=== PATIENT | female | born 1935 | race Caucasian/White ===

== ENCOUNTER → 2017-05-04 | Outpatient (CLI) | payer OTHER | END | disposition home or self-care (01) | LOC: ROC 07:58 | PROVIDERS: ATTEND Radiology Radiation Oncology | DX: Z08 Encounter for follow-up examination after completed treatment for malignant neoplasm (principal); D33.3 Benign neoplasm of cranial nerves; Z86.73 Personal history of transient ischemic attack (TIA), and cerebral infarction without residual deficits | CPT/HCPCS: 99213; G0463 ==

== ENCOUNTER 2021-02-07 04:21 | Inpatient (IN) | payer OTHER ==
[~2021-02-07] VITALS: Ht 167.6 cm; Wt 60.5 kg
--- NOTE | 2021-02-07 04:39 | NUR ---
PT BIB [facility] FOR WEAKNESS, AND ALTERED STATUS, PER THE PTS DAUGHTER. PT FOUND SLUMPED OVER IN THE BED, AFTER HAVING AN ACCIDENT AND STOOLING IN BED, AND WHILE THE DAUGHTER WAS REMOVING THE SHEETS, THE PT SLUMPED AND GOT WEAK. PT HAS HISTORY OF STROKE, AND CANCER. PT HAS LEFT SIDE DROOPING BASELINE, AND PA TO BEDSIDE TO EVAL PT, AND ORDERS RECEIVED. PT HAS A 20G PIV TO THE LEFT FOREARM. PIV FLUSHED EASILY, AND TAPED SECURELY.
--- NOTE | 2021-02-07 05:05 | NUR ---
PTS DAUGHTER IS AT BEDSIDE NOW AND DR GORDON TO ROOM TO EVAL PT.
--- NOTE | 2021-02-07 05:19 | NUR ---
PT CAN HAVE WATER NOW, AND PTS DAUGHTER PROVIDED SOME WATER. PT IN GOOD SPIRITS AND TALKING WITH RN AND FLIRTING, PTS DAUGHTER SAYS SHE'S INCORRIGABLE. PT PROVIDED WARM BLANKETS AND PT EXPRESSED COMFORT FOR IT.
[2021-02-07 05:23] LABS: BASOPHILS % (AUTO) 0 % (0-1); EOSINOPHILS % (AUTO) 1 % (1-7); LYMPHOCYTES % (AUTO) 8 % (22-44); MEAN CORPUSCULAR HEMOGLOBIN 32.2 pg (27.0-34.8); MEAN CORPUSCULAR HGB CONC 33.6 g/dL (32.4-35.8); MEAN PLATELET VOLUME 8.1 fL (7.4-10.4); MONOCYTES % (AUTO) 7 % (2-9); NEUTROPHILS % (AUTO) 84 % (42-75); PLATELET COUNT 314 x10^3/uL (130-400); RED BLOOD COUNT 4.99 x10^6/uL (3.82-5.3); RED CELL DISTRIBUTION WIDTH 15.3 % (9.6-15.2)
[2021-02-07] MEDS ORDERED: SODIUM CHLORIDE 0.9% 1,000ML IVBOLUS ONE (05:30)
--- NOTE | 2021-02-07 05:30 | NUR ---
IVMF STARTED, NS 1000ML PLACED ON PIV. RN TO BEDSIDE TO CONDUCT IN AND OUT CATH FOR URINE SAMPLE. PT AWARE AND AGREES. PTS DAUGHTER ALSO AGREES.
[2021-02-07 05:32] LABS: INTERNATIONAL NORMALIZED RATIO 1.03 (0.93-1.1)
[2021-02-07 05:33] LABS: ALANINE AMINOTRANSFERASE 19 U/L (12-78); ALBUMIN 3.3 g/dL (3.4-5.0); ANION GAP 5 mmol/L (5-15); CALCIUM 9.1 mg/dL (8.5-10.1); CHLORIDE 110 mmol/L (98-107); CREATININE 1.01 mg/dL (0.55-1.02)
[2021-02-07 05:37] LABS: ALKALINE PHOSPHATASE 42 U/L (45-117); BILIRUBIN,TOTAL 0.6 mg/dL (0.2-1.0); TOTAL PROTEIN 7.5 g/dL (6.4-8.2); TROPONIN I < 0.015 ng/mL (0.000-0.045)
[2021-02-07 05:56] LABS: MICROSCOPIC INDICATED
--- NOTE | 2021-02-07 05:58 | NUR ---
PT TAKEN TO CT SCAN, AND DID WELL. PT BACK TO ROOM, AND CONNECTED TO MONITOR.
[2021-02-07] MEDS ORDERED: OMNIPAQUE 350 MG/ML, 100ML BOTTLE ONE (06:09)
--- NOTE | 2021-02-07 06:52 | NUR ---
REPORT TO HUSEYIN NUR.
--- NOTE | 2021-02-07 06:59 | NUR ---
REPORT FROM SHEKHAR, ASSUME CARE OF PT AT THIS TIME.
[2021-02-07] MEDS ORDERED: DIAZEPAM 5 MG/ML, 10ML VIAL IVPush ONE (07:00)
[2021-02-07] MEDS ORDERED: DEXAMETHASONE 4 MG/ML, 1ML IVPush ONE (07:00)
[2021-02-07] MEDS ORDERED: DIAZEPAM 5 MG/ML, 2ML ONE (07:12)
[2021-02-07] MEDS ORDERED: DEXAMETHASONE 4 MG/ML, 1ML ONE (07:12)
--- NOTE | 2021-02-07 07:23 | NUR ---
PT MEDICATED PER ERP ORDER. OXYGEN PLACED AT 2LITERS VIA NC FOR RA SAT 91% PRIOR TO VALIUM. PT TO MRI.
--- NOTE | 2021-02-07 07:40 | NUR ---
PT MEDICATED WITH 2ND DOSE OF VALIUM PER VO ORDER DR HERNANDEZ FOR CLAUSTROPHOBIA IN MRI.
--- NOTE | 2021-02-07 08:31 | NUR ---
PT BACK FROM MRI, UNABLE TO DO PROCEDURE WITHOUT FULL SEDATION. ERP AND TOWER CONTROL OPERATOR NOTIFIED. CONFERRING WITH ELECTRICAL AND INSTRUMENT TECHNICIAN REGARDING TIME IR RN CAN ASSIST WITH PROCEDURAL SEDATION.
--- NOTE | 2021-02-07 08:41 | NUR ---
IR IN WITH OTHER PROCEDURE, CAN ASSIST WITH MRI SEDATION AFTERWARDS. ERP AND SUPERVISOR WET POUR INFORMED. PER DR HERNANDEZ, MAURA TO WAIT FOR IR RN AVAILABILITY TO DO MRI.
--- NOTE | 2021-02-07 09:45 | NUR ---
[facility] IN TO SEE PT. MED REC COMPLETED. PT AWAKE, NEEDING BR. PUREWICK PLACED WITH GOOD URINE OUPUT.
[2021-02-07] MEDS ORDERED: GABA-826 PO (09:47)
[2021-02-07] MEDS ORDERED: ASPI1TAB31 PO (09:47)
[2021-02-07] MEDS ORDERED: CLON0.5T20 PO (09:47)
[2021-02-07] MEDS ORDERED: FOLI1TAB5 PO (09:47)
[2021-02-07] MEDS ORDERED: FOLI1TAB32 PO (09:47)
[2021-02-07] MEDS ORDERED: VIT D3 PO (09:47)
[2021-02-07] MEDS ORDERED: ESOM20CA PO (09:47)
[2021-02-07] MEDS ORDERED: METH2.5T PO ×2 (09:47)
[2021-02-07] MEDS ORDERED: TELM40TA PO (09:47)
[2021-02-07] MEDS ORDERED: ATOR10TA9 PO (09:47)
[2021-02-07] MEDS ORDERED: ACID16CA PO (09:47)
--- NOTE | 2021-02-07 10:08 | NUR ---
PT HAS NURSING HOME [employer] INSURANCE. [facility] CONTACTED, SPOKE WITH MARICARMEN. PATRICK WORKING TO TRANSFER PT.
--- NOTE | 2021-02-07 10:19 | NUR ---
PT TO MRI WITH IR RN.
[2021-02-07] MEDS ORDERED: FENTANYL PF 100 MCG/2ML ONE (10:27)
[2021-02-07] MEDS ORDERED: MIDAZOLAM 1 MG/ML, 5ML ONE (10:46)
[2021-02-07] MEDS ORDERED: SODIUM CHLORIDE 0.9% 1,000 ML IV SCH ×2 (11:00→15:00)
[2021-02-07] MEDS ORDERED: ENOXAPARIN 40 MG/0.4 ML SQ SCH (11:00)
[2021-02-07] MEDS ORDERED: ACETAMINOPHEN 325 MG TABLET PO PRN (11:00)
[2021-02-07] MEDS ORDERED: LACTATED RINGERS 1,000 ML IV SCH (11:00)
[2021-02-07] MEDS ORDERED: ONDANSETRON ODT 4 MG PO PRN (11:00)
--- NOTE | 2021-02-07 11:16 | NUR ---
PER [facility], PT HAS BEEN ACCEPTED BY DR. SHUKLA. NO BED CURRENTLY AVAILABLE. HOLD IN ED. ED EGG CRATER, BANDAR, AWARE. DR. HERNANDEZ AWARE.
--- NOTE | 2021-02-07 11:40 | NUR ---
PT BACK FROM MRI, MRI UNSUCCESSFUL. MIRI NUR ATTEMPTING TO SET UP ANESTHESIA TODAY. COORDINATION REGARDING DISPOSTION BEING DONE BY ERP, THROUGHPUT, AND NEUROSURGEON. PT AND FAMILY UPDATED ON POC. ALL MONITORING BACK IN PLACE. PT ON 3LITERS OXYGEN VIA NC WITH PULSE OX READING 95%.
--- NOTE | 2021-02-07 11:41 | NUR ---
SPOKE WITH DR. RIZO REGARDING TRANSFER SITUATION. MD TO RE-EVALUATE WITH PT AND FAMILY TO DETERMINE WHERE PT IS TO BE ADMITTED.
[2021-02-07] MEDS ORDERED: ENOXAPARIN 40 MG/0.4 ML ONE (12:02)
[2021-02-07 12:09] VITALS: BP 135/73
--- NOTE | 2021-02-07 12:10 | NUR ---
IVF INFUSING PER EMAR. MED REQUEST TO PHARMACY FOR KEPPRA. AWAITING MRI W/GENERAL ANESTHESIA SCHEDULED FOR [id number]. DTR AT BS, CALL LIGHT WITHIN REACH. PT AWAKE, TALKING, VERBALIZES UNDERSTANDING OF POC.
[2021-02-07] MEDS ORDERED: morphine SULFATE 10 MG/ML, 1ML IVPush PRN ×2 (13:00→15:00)
[2021-02-07] MEDS ORDERED: hydrALAzine 20 MG/ML, 1ML IV PRN ×2 (13:00→15:00)
[2021-02-07] MEDS ORDERED: LABETALOL 5MG/ML, 20ML IV PRN ×2 (13:00→15:00)
--- NOTE | 2021-02-07 13:27 | NUR ---
PT SLEEPING INTERMITTENTLY, DAUGHTER AT BS. CALL LIGHT WITHIN REACH.
[2021-02-07] MEDS ORDERED: HYDROcodone/APAP 7.5-325MG/15ML UDC PO PRN (13:30)
[2021-02-07] MEDS ORDERED: PROMETHAZINE 25 MG/ML, 1ML IVPush PRN ×2 (13:30→15:30)
--- NOTE | 2021-02-07 13:52 | NUR ---
REPORT TO WALDEMAR NUR, TRANSFER OF CARE AT THIS TIME.
[2021-02-07] MEDS ORDERED: GADOTERATE 7.5 MMOL/15ML SYR ONE (14:00)
--- NOTE | 2021-02-07 14:01 | NUR ---
Report from BOOM Tracey. This nurse called pharmacy to request the keppra, pharmacy said they will tube it. Pt not in room, in MRI.
--- NOTE | 2021-02-07 14:27 | NUR ---
PT ACCEPTED TO [facility]. Addendum: 02/07/21 at 1427 by [facility] ARRANGED THROUGH [facility] [id number]
[2021-02-07] MEDS ORDERED: LEVETIRACETAM 500 MG in SODIUM CHLORIDE 0.9% 100 ML IV SCH (14:30)
[2021-02-07] MEDS ORDERED: LEVETIRACETAM 100 MG/ML, 5ML IV SCH (14:30)
[2021-02-07] MEDS ORDERED: PROPOFOL 10 MG/ML, 20ML ONE (14:41)
[2021-02-07] MEDS ORDERED: ONDANSETRON 2MG/ML, 2ML ONE (14:42)
--- NOTE | 2021-02-07 14:57 | NUR ---
Pt is in MRI, will go to PACU and then [facility].
[2021-02-07] MEDS ORDERED: LORazepam 2 MG/ML, 1ML IVPush PRN (15:00)
[2021-02-07] MEDS ORDERED: DEXA4VIA39 IVPush (15:03)
[2021-02-07] MEDS ORDERED: LEVE500T53 PO (15:03)
[2021-02-07] MEDS ORDERED: ONDANSETRON 2MG/ML, 2ML IVPush PRN ×2 (15:30)
[2021-02-07] MEDS ORDERED: OXYcodone 5 MG/5 ML ORAL.SOL UDC PO PRN (15:30)
[2021-02-07] MEDS ORDERED: GABAPENTIN 100 MG CAPSULE PO PRN (15:30)
[2021-02-07] MEDS ORDERED: FENTANYL PF 100 MCG/2ML IV PRN (15:30)
[2021-02-07] MEDS ORDERED: MELATONIN 5 MG TABLET PO PRN (21:00)
[2021-02-07] MEDS ORDERED: ATORVASTATIN 40 MG TABLET PO SCH (21:00)
[2021-02-08] MEDS ORDERED: DEXAMETHASONE 4 MG/ML, 1ML IVPush SCH (09:00)
[2021-02-08] MEDS ORDERED: PANTOPRAZOLE 40MG TABLET PO SCH (09:00)
[2021-02-08] MEDS ORDERED: MULTIVITAMIN 1 TABLET PO SCH (09:00)
[2021-02-08] MEDS ORDERED: ASA/APAP/ CAFFEINE TABLET PO SCH (09:00)
[2021-02-08] MEDS ORDERED: FOLIC ACID 1 MG TABLET PO SCH (09:00)
== END 2021-02-07 16:00 | disposition short-term general hospital (02) | DRG 54 ==
LOC: ED 05:02 → SUATTDRO 09:18 → EDIP 10:36
PROVIDERS: ADMIT Internal Medicine; ATTEND Internal Medicine
PROC: 0T9B70Z Drainage of Bladder with Drainage Device, Via Natural or Artificial Opening (ICD-10-PCS; principal; 2021-02-07 13:30)
DX: D33.2 Benign neoplasm of brain, unspecified (principal); G93.6 Cerebral edema; I69.351 Hemiplegia and hemiparesis following cerebral infarction affecting right dominant side; N17.9 Acute kidney failure, unspecified; R55 Syncope and collapse; D72.829 Elevated white blood cell count, unspecified; E78.5 Hyperlipidemia, unspecified; E86.0 Dehydration; I10 Essential (primary) hypertension; M06.9 Rheumatoid arthritis, unspecified; R29.810 Facial weakness; R32 Unspecified urinary incontinence; I95.9 Hypotension, unspecified; G93.9 Disorder of brain, unspecified; N18.30 Chronic kidney disease, stage 3 unspecified; I12.9 Hypertensive chronic kidney disease with stage 1 through stage 4 chronic kidney disease, or unspecified chronic kidney disease; Z85.51 Personal history of malignant neoplasm of bladder
CPT/HCPCS: 36415; 70450; 70496; 70498; 70553; 80053; 80320; 81001; 84484; 85025; 85610; 85730; 87086; 93005; 99156; 99157; 99285; J1100; J1650; J2250; J2405; J2704; J3010; Q9967; A9575; G0480; J7030; J7120